=== PATIENT | female | born 1955 | race American Indian/Alaskan Native ===

== ENCOUNTER 2018-03-13 16:26 | Emergency (ER) | payer SELFPAY ==
[2018-03-13] MEDS ORDERED: ASPIRIN PO ONE (16:40)
[2018-03-13 17:08] LABS: Basophils % (Auto) 0.8 % (0.0-1.8); Eosinophils % (Auto) 0.6 % (0.0-4.3); Hematocrit 39.3 % (30.3-42.9); Hemoglobin 12.6 gm/dl (10.1-14.3); Lymphocytes # (Auto) 2.3 K/mm3 (1.2-5.4); Lymphocytes % (Auto) 41.5 % (13.4-35.0); Mean Corpuscular HGB Conc 32 % (30-34); Mean Corpuscular Volume 78 fl (79-97); Monocytes # (Auto) 0.5 K/mm3 (0.0-0.8); Monocytes % (Auto) 8.3 % (0.0-7.3); Platelet Count 269 K/mm3 (140-440); Red Blood Count 5.02 M/mm3 (3.65-5.03)
[2018-03-13 17:20] LABS: Mean Corpuscular Hemoglobin 25 pg (28-32)
[2018-03-13 17:21] LABS: BUN/Creatinine Ratio 16; Blood Urea Nitrogen 16 mg/dL (7-17); Calcium 9.2 mg/dL (8.4-10.2); Hemolysis Index 0
[2018-03-13] MEDS ORDERED: NACL 0.9% 1000 ML 1,000 ML IV ONE (20:35)
[2018-03-13] MEDS ORDERED: TYLENOL PO ONE (21:00)
[2018-03-13] MEDS ORDERED: REGLAN IV ONE (21:00)
[2018-03-13] MEDS ORDERED: NACL ONE (21:10)
--- NOTE | 2018-03-13 21:55 | Cat Scan Report ---
FINAL REPORT PROCEDURE: CT head without contrast. TECHNIQUE: Computerized tomography of the head was performed without contrast material. HISTORY: Headache. COMPARISON: No prior studies are available for comparison. FINDINGS: The ventricles are normal in size. There is a focal area of diminished attenuation involving the head of the right caudate nucleus. This is consistent with an old infarct. The kwon matter and white matter otherwise appear normal. There are no mass lesions. There is no intracranial hemorrhage. The calvarium appears intact. The mastoid air cells and visualized paranasal sinuses are well aerated. IMPRESSION: Old right basal ganglia infarct. Otherwise normal study.
--- NOTE | 2018-03-13 22:12 | Cat Scan Report ---
FINAL REPORT PROCEDURE: CT angiogram chest with contrast. TECHNIQUE: Computerized tomographic angiography of the chest was performed after the IV injection of iodinated nonionic contrast including image processing. The image data was postprocessed using 2-dimensional multiplanar reformatted (MPR) and 3-dimensional (MIP and/or volume rendered) techniques. HISTORY: Chest pain. COMPARISON: No prior studies are available for comparison. FINDINGS: The trachea and central bronchi appear normal. There is mild bronchiectasis in both lower lobes. The lungs are clear. There are no signs of pneumonia. There are no pulmonary masses. There are no pleural effusions. There is mild ectasia and elongation of the thoracic aorta. The pulmonary arteries enhance normally. There are no filling defects to indicate pulmonary embolism. There is no mediastinal adenopathy. The heart size is normal. The adrenal glands are not enlarged. There is a small calcified gallstone. The thoracic skeleton appears intact. IMPRESSION: No evidence of pulmonary embolism. Mild bronchiectasis in both lower lobes. Cholelithiasis.
--- NOTE | 2018-03-13 22:35 | XRay Report ---
FINAL REPORT PROCEDURE: Chest. TECHNIQUE: Portable AP view. HISTORY: chest pain COMPARISON: No prior studies are available for comparison. FINDINGS: The heart size is borderline. There is moderate tortuosity of the thoracic aorta. The lungs are clear and well expanded. There are no pleural effusions. The soft tissues are unremarkable. The regional skeleton appears intact. IMPRESSION: No evidence of acute disease.
[2018-03-13 23:38] VITALS: BP 160/99
--- NOTE | 2018-03-14 02:18 | Emergency Department Report ---
HPI - General Chief Complaint: Dizziness Time Seen by Provider: 03/13/18 20:20 - HPI HPI: The patient is a 62-year-old female presents for evaluation of lightheadedness, nausea, and upper extremity muscle cramping. The patient states that her symptoms began at 3 PM while she was outside walking. Her lightheadedness was moderate in severity, exacerbated with position changes or ambulation, and improved with rest. She says that the muscle cramps in her hands and arms was mild in severity as well, self resolving, lasting for minutes. on questioning she admits to mild burning in quality chest pain greater than 10 hours ago, lasted for minutes, and also self resolving. She denies pressure- like chest pain. The patient also denies fever, head injury, headache, neck pain , neck stiffness, vision or hearing changes, smell or taste changes, paresthesias, facial drooping, slurred speech, seizure-like activity, urine or bowel incontinence or retention, or other focal neurological deficit. ED Past Medical Hx - Past Medical History Previous Medical History?: Yes Hx Hypertension: Yes Hx Congestive Heart Failure: Yes - Surgical History Past Surgical History?: Yes Hx Appendectomy: Yes Additional Surgical History: right knee 2016, Back surgery - Social History Smoking Status: Never Smoker Substance Use Type: Alcohol - Medications Home Medications: Home Medications Medication Instructions Recorded Confirmed Last Taken Type Cyclobenzaprine HCl [Flexeril 5 MG 5 mg PO Q8HR PRN #15 tab 03/13/18 Unknown Rx TAB] Meclizine [Antivert] 25 mg PO TID PRN #20 tablet 03/13/18 Unknown Rx Ondansetron [Zofran TAB] 4 mg PO Q8HR PRN #15 tablet 03/13/18 Unknown Rx ED Review of Systems ROS: Stated complaint: DIZZY/NAUSEA, PAIN Other details as noted in HPI Constitutional: reports lighheadedness denies: fever ENT: denies: throat or neck pain Respiratory: denies: cough, shortness of breath Cardiovascular: reports chest pain Endocrine: denies unexplained weight loss or gain Gastrointestinal: denies: abdominal pain reports nausea Genitourinary: denies: dysuria Musculoskeletal: reports hand and arm cramps denies: leg swelling Skin: denies: rash Neurological: denies: headache Hematological/Lymphatic: denies: easy bleeding or easy bruising Psych: denies sadness or hopelessness Physical Exam - Physical Exam Vital Signs: Vital Signs 03/13/18 03/13/18 16:37 20:40 Temperature 97.8 F Pulse Rate 80 Respiratory 18 18 Rate Blood Pressure 106/81 O2 Sat by Pulse 98 99 Oximetry Physical Exam: General: well-nourished, well-developed, no acute distress Head: Normocephalic, atraumatic Eyes: normal sclera ENT: Mucous membranes are pale and dry Neck: No neck stiffness, no cervical adenopathy Respiratory: Breath sounds equal bilaterally, no wheezing, rales, or rhonchi Cardio: S1 and S2 present, no murmurs, rubs, gallops, capillary refill is delayed Abdomen: Normoactive bowel sounds, soft abdomen, no tenderness Chest WALL/Back: No tenderness to palpation of the chest wall, no CVA tenderness with percussion Musc: Inspection of the arms and legs bilaterally unremarkable, Arm or leg compartments are soft and pliable, no sensation or motor deficits in the arms and legs bilaterally, reflexes 2+ symmetric on DTR testing, No pitting edema Skin: No rash Neuro: alert oriented x4, normal cognition, speech normal, PERRL, EOM intact, no facial drooping, no uvula or tongue deviation on protrusion, no deficit with rotation of neck or shoulder shrug, no obvious gross motor deficit in the upper or lower extremities with flexion or extension at the shoulder, elbow, wrist, hip, knee, or ankle bilaterally, no obvious gross sensation deficit to crude touch or 2 pt discrimination, no coordination deficit with [id number] or [id number] testing, romberg negative, patient able to to ambulate without abnormal gait Psych: Normal affect ED Course Vital Signs 03/13/18 03/13/18 16:37 20:40 Temperature 97.8 F Pulse Rate 80 Respiratory 18 18 Rate Blood Pressure 106/81 O2 Sat by Pulse 98 99 Oximetry ED Medical Decision Making - Lab Data Result diagrams: 03/13/18 16:51 03/13/18 16:51 - Medical Decision Making The patient was seen and examined by myself. The patient is placed on a monitor tech and continuous pulse ox. On initial evaluation, the patient was found to be in no distress. EKG was negative for findings suggestive of acute cardiac infarct. Labs and imaging are obtained. The patient is given a tablet Tylenol for pain and 1 L normal saline fluid bolus for treatment of her dehydration. Chest x-ray is negative for pneumothorax, focal consolidation, pulmonary vascular congestion, pleural effusion, or other obvious acute cardiopulmonary disease process. Lab results were non-concerning including levels of 3 sets of troponin troponin, WBC, hemoglobin, hematocrit, renal function. \ CT angiogram of the chest is negative for pulmonary embolism or aortic dissection. The patient was reevaluated and reported that their symptoms were markedly improved. As the patient has a [place] risk score less than 2, and a well 's score less than 2, the patient is at low risk of ACS or pulmonary emboli etiology of their symptoms. The patient is stable for discharge with outpatient follow-up. The patient is given follow-up and return instructions. The patient expressed understanding and agreed with the plan. The patient is discharged in stable condition. Critical care attestation.: If time is entered above; I have spent that time in minutes in the direct care of this critically ill patient, excluding procedure time. ED Disposition Clinical Impression: Acute chest pain, Orthostatic dizziness, Dehydration, mild Disposition: DC-01 TO HOME OR SELFCARE Is pt being admited?: No Does the pt Need Aspirin: No Condition: Stable Instructions: Chest Pain (ED), Lightheadedness (ED), Dehydration (ED) Referrals: JOSE LOPEZ MD [Primary Care Provider] - 3-5 Days Time of Disposition: 23:19
== END 2018-03-13 23:38 | disposition home or self-care (01) ==
LOC: ED 16:26
DX: R07.89 Other chest pain (principal); I95.1 Orthostatic hypotension; E86.0 Dehydration; I11.0 Hypertensive heart disease with heart failure; I50.9 Heart failure, unspecified; Z88.6 Allergy status to analgesic agent; Z88.0 Allergy status to penicillin
CPT/HCPCS: 36415; 70450; 71045; 71275; 80048; 84484; 85025; 93005; 93010; 96361; 96374; 99285; J2765; J7030; Q9967